=== PATIENT | male | born 1960 | race Caucasian/White ===

== ENCOUNTER 2018-05-16 10:53 | Emergency (ER) | payer OTHER ==
[2018-05-16 10:59] VITALS: BP 137/81
--- NOTE | 2018-05-16 12:15 | EDPHY ---
General Time Seen by Provider: 05/16/18 11:37 Narrative: CHIEF COMPLAINT: Fall, finger injury HISTORY OF PRESENT ILLNESS: Patient presents by private vehicle with his spouse with complaints of finger injury while running. he was running this morning just prior to arrival when he fell, landing on his left and then right hands. He sustained some superficial abrasions but noted immediate pain and deformity of his left little finger. Severely painful. Worse with movement or palpation. Radiates into his hand. Denies head strike, headache, LOC, neck pain, chest pain, back pain, abdominal pain or pain elsewhere on his person. No numbness or tingling. Has not tried range of motion. Tetanus up to date. No other associated complaints or modifying factors. DOMINANT EXTREMITY: Right-hand dominant ESTABLISHED ORTHOPEDIST: None REVIEW OF SYSTEMS: Ten systems reviewed and are negative unless otherwise noted in the HPI PAST MEDICAL HISTORY: Uncomplicated PAST SURGICAL HISTORY: No surgical history SOCIAL HISTORY: Nonsmoker. FAMILY HISTORY: non contributory EXAMINATION: General Appearance: Alert, no distress HEENT: normocephalic and atraumatic. PERRL with symmetric EOM Cardiovascular: Symmetric radial pulses 2+. Brisk cap refill the fingers left hand. Neurological: A&O, light and 2 point sensory symmetric, strength not tested due to deformity to the left finger. Skin: Warm and dry, no rash. Superficial abrasion to the left thenar eminence , 1 cm x 1 cm. There is no laceration or puncture near the dislocation. Extremities: Deformity of the left little finger at the PIP joint with dorsal displacement. There is no laceration or puncture about this. Range of motion of the finger not tested due to pain and deformity. Psychiatric: Mood and affect normal DIFFERENTIAL DIAGNOSES: Including but not limited to dislocation, sprain, strain, fracture, subluxation , open dislocation, open fracture MDM: 11:30 a.m. Fall with left pinky PIP dislocation just prior to arrival. He is neuro intact distal to the injury. There is no laceration or puncture the proximity of the injury. There is no injury to the remainder of the hand, wrist or elbow on the left upper extremity. He is awake alert. No acute distress. I have administered a digital block and will reduce the finger. 12:15 p.m. Successful closed reduction of the left little finger PIP joint. Neuro intact distally pre procedure. Excellent range of motion of the left hand on all fingers including full flexion extension. Excellent signs of perfusion postprocedure. He will be placed in a finger splint and mindy tape. We discussed mandatory hand follow-up due to the dislocation possibility of chip fracture. We discussed immobilization, elevation, ice and ibuprofen. We discussed wound care of the abrasion. We discussed ED precautions. I have answered his questions, he is well appearing and discharged in stable condition. Procedure: Closed reduction of finger joint Consent: Verbal Location: Left 5th finger PIP joint Anesthesia: Digital block Procedure:after time out and good anesthesia, the left little finger PIP was reduced in a closed manner with traction and volar pressure of the middle and distal phalanges. Successful anatomic alignment visualized. ROM intact including extension and both flexors. Good signs of perfusion distally. Complications: none Post-reduction film: successful reduction. PROCEDURE: Digital Block Indication: Finger dislocation Consent: Verbal Location: left little finger Anesthesia: Lidocaine 1% plain, 0.25% Marcaine plain, 5mL Description: Base of the finger was prepped. The above was infused without difficulty. Tolerated well. Good anesthesia. Complications: None SUPERVISION: Independent evaluation - Diagnostics Imaging: I viewed and interpreted images myself - History History Review: I reviewed the patient's medical records, I obtained additional history from the patient's family Smoking Status: Never smoked - Objective Vital Signs: Initial Vital Signs Temperature (C) 97.5 F 05/16/18 10:56 Heart Rate 77 05/16/18 10:56 Respiratory Rate 18 05/16/18 10:56 Blood Pressure 137/81 H 05/16/18 10:56 O2 Sat (%) 98 05/16/18 10:56 O2 Delivery Mode Room Air Allergies/Adverse Reactions: No Known Allergies Allergy (Unverified 05/16/18 10:56) Home Medications: Medication Instructions Recorded NK [No Known Home Meds] 05/16/18 Departure - Departure Disposition: Home, Routine, Self-Care Clinical Impression: Dislocation of interphalangeal joint of left little finger Qualifiers: Encounter type: initial encounter Qualified Code(s): S63.277A - Dislocation of unspecified interphalangeal joint of left little finger, initial encounter Abrasion hand Qualifiers: Encounter type: initial encounter Laterality: left Qualified Code(s): S60.512A - Abrasion of left hand, initial encounter Fall while running Qualifiers: Encounter type: initial encounter Qualified Code(s): W19.XXXA - Unspecified fall, initial encounter; Y93.02 - Activity, running; Y93.02 - Activity, running Condition: Good Instructions: Finger Dislocation (ED), Closed Reduction (ED) Additional Instructions: 1. Splint and mindy-taped to the finger until seen by hand surgeon for definitive care 2. Ice and elevation often 3. Ibuprofen 600 mg every 6-8 hours as needed for pain. 4. Contact hand surgeon on Friday for outpatient definitive care 5. ED precautions for numbness, tingling, weakness, severe pain, changes in color of the finger. 6. I recommend that you remain nonweightbearing on this finger until seen by Orthopedics for definitive care. Referrals: CRISTIANO MACIEL [Other] - As per Instructions Noel Butcher MD [Medical Doctor] - As per Instructions
== END 2018-05-16 12:31 | disposition home or self-care (01) ==
PROC: 0PSVXZZ Reposition Left Finger Phalanx, External Approach (ICD-10-PCS; principal; 2018-05-16)
DX: S69.92XA Unspecified injury of left wrist, hand and finger(s), initial encounter (principal); W19.XXXA Unspecified fall, initial encounter; Y93.02 Activity, running; Y92.9 Unspecified place or not applicable; Y99.9 Unspecified external cause status
CPT/HCPCS: L3925